=== PATIENT | male | born 2000 | race Caucasian/White ===

== ENCOUNTER 2024-11-12 14:15 | Inpatient (IN) ==
--- NOTE | 2024-11-12 15:20 | Emergency Department Note ---
Impression & Plan Suicidal ideation, Depression ED Provider Note HISTORY OF PRESENT ILLNESS: Patient is a 24-year-old male presenting with suicidal ideation. Patient reports he has a history of OCD and is previously prescribed Zoloft. He reports that he has been rationing his Zoloft over the last few weeks secondary to being unable to afford the co-pay for the medication. He reports that he was working from home today when he had sudden onset of thoughts about wanting to end his life in multiple ways to do it. He reports thinking about jumping off of a building, slitting his wrists in the tub, causing an accident with his vehicle, as well as overdosing. He reports he attempted suicide over a decade ago as a teenager via overdose. He denies any inpatient psychiatric admissions. Denies any homicidal ideation. Denies any auditory visual hallucinations. ROS: as above PHYSICAL EXAM: Constitutional: Patient appears in no acute distress. HENT: Head: Normocephalic and atraumatic. Eyes: EOMI, PERRL Mouth/Throat: Mucous membranes moist. Neck: Trachea midline. Neck supple. Musculoskeletal: No edema, tenderness or deformity noted. Skin: Warm and dry. No rash, erythema, pallor or cyanosis Psychiatric: Appropriate mood and affect for situation. Neurological: Alert and keenly responsive. CN II-XII grossly intact, moving all extremities equally and fully. MDM: - Vitals signs showed tachycardia - History obtained via patient. History as above. - Chronic conditions affecting care: depression - Differential diagnoses include, but are not limited to: depression; UTI; drug intoxication; alcohol intoxication - External medical records reviewed. - Laboratory workup interpreted by myself showed leukocytosis (WBC 14.69); stable electrolytes; elevated anion gap; normal TSH; negative salicylate/acetaminophen/alcohol levels - COVID negative - UA negative for infection - UDS positive for methamphetamine, MDMA and marijuana. - Patient medically cleared. He was seen in conjunction with behavioral health case folder. Given patient's symptoms, recommended inpatient admission, to which she was agreeable. He signed a 201 for voluntary inpatient psychiatric admission. Bed search was initiated, and patient was accepted to [facility] inpatient psychiatric unit [address]. ASSESSMENT AND PLAN: Diagnosis: suicidal ideation; depression Plan: admit Past Med/Surg History Problem List (Updated 11/12/24 @ 19:04 by Hawa Estes MD) Depression (Acute) Suicidal ideation (Acute) Social History Smoking Status: Never smoker Feels Safe at Home: Yes Gender Identity: Male Allergies Allergies Allergy/AdvReac Type Severity Reaction Status Date / Time No Known Allergies Allergy Unverified 11/12/24 15:37 Home Meds Home Medications Medication Instructions Recorded Confirmed guanfacine 1 mg tablet 1 mg PO HS 11/12/24 11/12/24 lisdexamfetamine 30 mg capsule 30 mg PO DAILY 11/12/24 11/12/24 (Vyvanse) sertraline 100 mg tablet (Zoloft) 150 mg PO DAILY 11/12/24 11/12/24 Results & Data (ED) Vital Signs Vital Signs - 24 hr 11/12/24 14:17 11/12/24 16:00 11/12/24 18:53 Temperature 36.8 C Temperature Source Oral Pulse Rate 124 H 100 H Pulse Rate [Radial] 90 Pulse Rhythm Regular Pulse Rhythm [Radial] Regular Pulse Strength Normal Respiratory Rate 20 16 18 Respiratory Effort / Characteristics Non-Labored Spontaneous Non-Labored Respiratory Depth Normal Normal Respiratory Pattern Regular Blood Pressure 128/91 118/80 Blood Pressure [Right Arm] 125/81 Blood Pressure Mean 103 Blood Pressure Mean [Right Arm] 95 Pulse Oximetry 95 96 98 Oxygen Delivery Method Room Air Room Air Room Air Sepsis Recent Fever Within 48 Hours No Sepsis New/Unexplained Change in Mental Status N/A Sepsis Action Taken by Nursing No Action Required Laboratory Data 11/12/24 14:34 11/12/24 14:34 Lab Results 11/12/24 11/12/24 Range/Units 14:22 14:34 WBC 14.69 H (4.8-10.8) K/ul RBC 5.45 (4.70-6.10) M/uL Hgb 16.0 (14.0-18.0) g/dl Hct 46.2 (42.0-52.0) % MCV 84.8 (80.0-100.0) fL MCH 29.4 (25.0-34.0) pg MCHC 34.6 (32.0-36.0) g/dL RDW Std Deviation 36.7 (36.4-46.3) fL RDW Coeff of Kira 12.2 (11.5-14.5) % Plt Count 296 (130-400) K/uL MPV 10.6 (9.4-12.4) fL Immature Gran % (Auto) 0.3 % Neut % (Auto) 85.1 % Lymph % (Auto) 8.3 % [place] % (Auto) 5.4 % Eos % (Auto) 0.5 % Baso % (Auto) 0.4 % Neut # (Auto) 12.51 H (1.40-6.50) K/uL Lymph # (Auto) 1.22 (1.20-3.40) K/uL [place] # (Auto) 0.79 H (0.11-0.59) K/uL Eos # (Auto) 0.07 (0.00-0.50) K/uL Baso # (Auto) 0.06 (0.00-0.20) K/uL Immature Gran # (Auto) 0.04 (0.01-0.20) K/uL Sodium 140 (136-145) mmol/L Potassium 3.7 (3.5-5.1) mmol/L Chloride 103 (98-107) mmol/L Carbon Dioxide 22 (21-32) mmol/L Anion Gap 15 H (3-11) BUN 29 H (6-23) mg/dl Creatinine 1.00 (0.6-1.4) mg/dl Est Cr Clr Drug Dosing 96.7 ml/min eGFR 106.45 BUN/Creatinine Ratio 29.0 H (10-20) Glucose 91 (70-99(Fasting)) mg/dl Calcium 10.3 (8.6-10.3) mg/dl Total Bilirubin 0.7 (0.2-1.0) mg/dl AST 23 (13-39) U/L ALT 22 (7-52) U/L Alkaline Phosphatase 80 (34-104) U/L Total Protein 8.6 H (6.0-8.3) gm/dl Albumin 5.7 H (3.4-5.0) gm/dl Globulin 2.9 (2.5-4.0) gm/dl Albumin/Globulin Ratio 2.0 (0.9-2) TSH 1.950 (0.300-4.500) uIu/ml Urine Color Dark Yellow Urine Appearance Clear (Clear) Urine pH 5.5 (4.5-7.5) Ur Specific [place] 1.033 H (1.000-1.030) Urine Protein Trace H (Negative) Urine Glucose (UA) Negative (Negative) Urine Ketones 2+ H (Negative) Urine Blood Negative (Negative) Urine Nitrite Negative (Negative) Urine Bilirubin Negative (Negative) Urine Urobilinogen Negative (Negative) Ur Leukocyte Esterase Negative (Negative) Urine WBC (Auto) 0-5 (0-5) /hpf Urine RBC (Auto) 0-2 (0-2) /hpf U Hyaline Cast (Auto) 3-5 H (0-2) /lpf U Epithel Cells (Auto) 0-2 (0-2) /hpf Urine Bacteria (Auto) None Seen (None Seen) Urine Mucus Present A (None Prsent) Salicylates < 3.0 L (3.0-30) mg/dl Urine Opiates Screen Neg (Neg) Ur Methadone, Qual Neg (Neg) Urine Fentanyl Screen Neg (Neg) Acetaminophen < 3 L (10-30) ug/ml Urine Barbiturates Neg (Neg) Ur Phencyclidine (PCP) Neg (Neg) U Amphetamin/Meth Scrn Pos H (Neg) MDMA (Ecstasy) Screen Pos H (Neg) U Benzodiazepines Scrn Neg (Neg) Ur Cocaine Metabolite Neg (Neg) U Marijuana (THC) Screen Pos H (Neg) Ethyl Alcohol mg/dL < 10.0 (<10.0) mg/dl SARS-CoV-2, RNA, NAAT NEGATIVE (NEGATIVE) Discharge Plan Visit Data Chief Complaint: Mental Health Evaluation Stated Complaint: HAVING A MENTAL CRISIS ED Provider: Hawa Estes Discharge Problem: Suicidal ideation, Depression Discharge Instructions Interventions: ED Discharge Assessment Last Done: 11/12/24 18:53
[2024-11-12 15:29] LABS: Basophils # (auto) 0.06 K/uL (0.00-0.20); Basophils % (auto) 0.4 %; Eosinophils # (auto) 0.07 K/uL (0.00-0.50); Eosinophils % (auto) 0.5 %; Hematocrit (blood only) 46.2 % (42.0-52.0); Immature Granulocytes # (auto) 0.04 K/uL (0.01-0.20); Immature Granulocytes % (auto) 0.3 %; Lymphocytes # (auto) 1.22 K/uL (1.20-3.40); Lymphocytes % (auto) 8.3 %; Mean Corpuscular Hemoglobin 29.4 pg (25.0-34.0); Mean Corpuscular Hgb Conc 34.6 g/dL (32.0-36.0); Mean Corpuscular Volume 84.8 fL (80.0-100.0); Mean Platelet Volume 10.6 fL (9.4-12.4); Monocytes # (auto) 0.79 K/uL (0.11-0.59); Monocytes % (auto) 5.4 %; Neutrophils # (auto) 12.51 K/uL (1.40-6.50); Neutrophils % (auto) 85.1 %; Platelet Count 296 K/uL (130-400); RDW Coefficient of Variation 12.2 % (11.5-14.5); RDW Standard Deviation 36.7 fL (36.4-46.3); Red Blood Count 5.45 M/uL (4.70-6.10); White Blood Count 14.69 K/ul (4.8-10.8)
[2024-11-12 15:32] LABS: Appearance Urine Clear (Clear); Bacteria Urine Automated None Seen (None Seen); Bilirubin Urine Negative (Negative); Blood Urine Negative (Negative); Color Urine Dark Yellow; Epithelial Cell Urine Auto 0-2 /hpf (0-2); Glucose Urine UA Negative (Negative); Ketones Urine 2+ (Negative); Leukocyte Esterase Urine Negative (Negative); Mucus Urine Present (None Prsent); Nitrite Urine Negative (Negative); Protein Urine Trace (Negative); RBC Urine Automated 0-2 /hpf (0-2); Specific Gravity Urine 1.033 (1.000-1.030); Urobilinogen Urine Negative (Negative); WBC Urine Automated 0-5 /hpf (0-5); pH Urine 5.5 (4.5-7.5)
[2024-11-12 16:02] LABS: Amphetamines+Metham, Urine Pos (Neg); Barbiturates, Urine Neg (Neg); Benzodiazepine, Urine Neg (Neg); Cocaine, Urine Neg (Neg); Fentanyl, Urine Neg (Neg); MDMA (Ecstacy), Urine Pos (Neg); Marijuana, Urine Pos (Neg); Methadone, Urine Neg (Neg); Opiate, Urine Neg (Neg); Phencyclidine, Urine Neg (Neg)
[2024-11-12 16:07] LABS: Acetaminophen < 3 ug/ml (10-30); Salicylate < 3.0 mg/dl (3.0-30)
[2024-11-12 16:09] LABS: Albumin Level 5.7 gm/dl (3.4-5.0); Bilirubin,Total 0.7 mg/dl (0.2-1.0); Calcium 10.3 mg/dl (8.6-10.3); Creatinine Clr Calc Pharmacy 96.7 ml/min; Globulin 2.9 gm/dl (2.5-4.0); Potassium 3.7 mmol/L (3.5-5.1); Total Protein 8.6 gm/dl (6.0-8.3)
[2024-11-12 16:24] LABS: Thyroid Stimulating Hormone 1.95 uIu/ml (0.300-4.500)
[2024-11-12] MEDS ORDERED: SODIUM CHLORIDE 0.65% NA SOLN 45 ML (OCEAN) PRN (19:10)
[2024-11-12] MEDS ORDERED: BISMUTH SUBSALICYLATE 262 MG CHEW PO PRN (19:10)
[2024-11-12] MEDS ORDERED: MAGNESIUM HYDROXIDE SUSP 30 ML UDC PO PRN (19:10)
[2024-11-12] MEDS ORDERED: hydrOXYzine HCl 25 MG TAB PO PRN ×2 (19:10)
[2024-11-12] MEDS ORDERED: ALUMINUM/MAGNESIUM SUSP 30 ML UDC PO PRN (19:10)
[2024-11-12] MEDS ORDERED: ACETAMINOPHEN 325 MG TAB PO PRN (19:10)
[2024-11-12] MEDS: guanFACINE HCL 1 MG TAB PO SCH (21:29)
--- NOTE | 2024-11-13 10:07 | History & Physical ---
Date of Service November 13, 2024 Impression / Recommendations Impression JOEY CAMERON is a 24-year-old man who currently lives in [place] with his boyfriend, has a history of ADHD combined type, OCD, and possible bipolar disorder was admitted on 11/12/24 18:28 on a 201 voluntary commitment for depression with SI with plans in the context of having to taper his sertraline due to financial constraints. Diagnostically consistent with unspecified depression with differential in cluding MDD vs bipolar affective disorder vs SSRI withdrawal vs worsening OCD as well as MG with panic attacks and ADHD per history and possible component of complex PTSD/early life adversity. Discussed medication treatment options in detail. Discussed risks, benefits and alternatives. Patient would like to start and consented to restarting and retitrating sertraline for depression, OCD, MG. Reviewed side effects including but not limited to: GI, ANNE, sexual side effects and continuing guanfacine for ADHD and off-label for anxiety/PTSD/restless leg syndrome reviewed side effects including but not limited to: low BP. Overall I spent a total of 75 minutes for this admission including review of chart records, review of labwork, direct evaluation of the patient, counseling the patient, ordering medication, risk assessment, discussion with the psychiatric liason RN and documentation in the electronic health record. (1) Depression with suicidal ideation: (2) Obsessive compulsive disorder: (3) Generalized anxiety disorder with panic attacks: (4) ADHD (attention deficit hyperactivity disorder), combined type: Plan 11/13/2024: The patient was admitted to the [facility]) on q15 min checks (behavioral with suicide precautions) for safety. The patient will participate in group, recreational, and milieu therapies and will be offered additional individual and family sessions as clinically appropriate. -increase to sertraline 100mg daily -continue guanfacine 1mg HS -hold Vyvanse since he won't be working and isn't available on hospital formulary -outpatient CM referral, consideration for IOP referral for increased coping skills for emotional regulation/depression/anxiety/OCD -Symptom questionnaires: Y-BOCS, REG, Mood Disorder questionnaire Inventory Assets Strengths: supportive relationships, willing to get treatment Needs: safety and stabilization, medication adjustment, additional coping skills, increased outpatient services Suicide Risk Level Suicide Risk Level: High-Moderate (q15 min suicide checks) (SI with plan prior to admission but feels safe here and feels able to ask for support ) Risk Factors Assessment Male: Yes : Yes Do You Have Access To A Gun?: No Health Problems: No Mental Health Diagnoses: Yes Substance Use Disorders: No Previous Attempt: Yes Family History of Suicide: No Previous Psychiatric Hospitalization: No Hopelessness: No Protective Factors Assessment Employed: Yes Stable Relationships: Yes Good Rapport with Provider: Yes Psychiatric History Identifying Data JOEY CAMERON is a 24-year-old man who currently lives in [place] with his boyfriend, has a history of ADHD combined type, OCD, and possible bipolar disorder was admitted on 11/12/24 18:28 on a 201 voluntary commitment for depression with SI with plans. Chief Complaint "It got really intense". History of Present Illness He presents for psychiatric admission for worsening depression and SI with possible plans of jumping [] in the context of multiple psychosocial stressors including family, financial and work challenges. Starting about two weeks ago he had to start stretching out his sertraline dose due to financial issues limiting his ability to afford the co-pay for a psychiatry appointment to get a prescription refill. He reduced his dose from 150mg daily to 50mg daily over the last two weeks to stretch his prescription until he can afford to be seen by his outpatient provider again. He identifies a lot of OCD symptoms including intrusive violent thoughts about harming himself or others he cares about. He abhijeet by self-reassurance and distraction, though he sometimes struggles to distance himself from these thoughts. 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 He feels overwhelmed, burnt out, and unable to find enjoyment in activities. He endorses depressive symptoms including anhedonia, tearfulness, decreased motivation, low appetite (though in part from lack of finances and he thinks due to Vyvanse and has lost weight), sleep has been intermittent and then SI started on . Initially he could get the thoughts out of his mind but yesterday the SI intensified significantly especially after being scolded by his manager building with overwhelming emotion and he started to feel like he was worthless and letting the company down. His suicidal thoughts then got to the point of plans including hanging, using a gun, jumping off a building, slitting wrists, overdosing on pills, or throwing himself down stairs. He recognized the intensity of his suicidal thoughts as concerning and therefore sought admission. He identifies these thoughts feel almost like "dissociation and a flashback" due to the intensity of the imagery. He also endorses anxiety with a history of severe panic attacks, including episodes where he believed he was dying from gunshot wounds or heart failure. He is currently prescribed psychiatric medications including sertraline, Vyvanse and guanfacine (helps also with restless legs). Psychiatric ROS notable for history of some episodes of increased energy and no sleep over about 3 days which occurred about a month ago. Reports history of possible psychosis after using cannabis and watching the [employer] Show and for about 5 days was convinced he might be in a stimulated reality and sometimes still worries that people might be watching or following him. He identifies that he can get very focused on somatic concerns including fears his pulse may have stopped. No history of eating disorder nor self-harm. Past Psychiatric History Current Psychiatric Diagnosis: Unspecified depressive d/o Outpatient Services: Dr. Cheung at [facility] current therapist Kourtney at [facility] Previous Psych Admissions: none Do You Have Access To A Gun?: No History of Previous Suicide Attempt: Yes (10 years ago - OD on ibuprofen) Past Medication Trials: hx of Adderall for about 2 months but blunted emotions Allergies Allergy/AdvReac Type Severity Reaction Status Date / Time No Known Allergies Allergy Unverified 11/12/24 15:37 Home Medications Medication Instructions Recorded Confirmed Type guanfacine 1 mg tablet 1 mg PO HS 11/12/24 11/12/24 History lisdexamfetamine 30 mg capsule 30 mg PO DAILY 11/12/24 11/12/24 History (Vyvanse) sertraline 100 mg tablet (Zoloft) 150 mg PO DAILY 11/12/24 11/12/24 History Family History Family History of: Depression (mother), Alcoholism/Drug Abuse (father, mother with opioid use) and Other-List under Comment (father with psychosis and paranoia) Alcohol History Hx of Alcohol Use Over the Past 12 Months: No AUDIT Total Score: 0 Smoking Use Have You Smoked or Used Tobacco Products in the Last 30 Days: No Smoking Status: Never smoker Substance History Hx of Prescription Med Misuse Over the Past 12 Months: No Hx of Over the Counter Med Misuse Over the Past 12 Months: No Hx of Inhalent Misuse Over the Past 12 Months: No Hx of Organic Substance Use Over the Past 12 Months: No Hx of Illegal Substances/Street Drug Use Over Past 12 Months: No Problems as a Result of Past Substance Use: None Identified Problems as a Result of Past Substance Use Comments: [place] [employer] Personal History Living Arrangements: Apartment Employment Status: [employer]er Employed Marital Status: Living w/ Signif. Other Beliefs That Will Affect Care: None Hx Traumatic Life Events: Yes Patient History Social History Smoking Status: Never smoker Preferred Language: Liberian Communication Ability: Effective Product Management Consultant Required: No Beliefs That Will Affect Care: None Feels Safe at Home: Yes Gender Identity: Male Assistive Devices: Glasses Review of Systems Review of Systems: All systems reviewed & are unremarkable except as noted in HPI & below Physical Exam Psychiatric: Orientation: alert and oriented x 3 Apperance: appropriately dressed and appropriately groomed Eye Contact: good eye contact Motor Behavior: no abnormal motor movements Speech: normal rate/rhythm/volume of speech Affect: + depressed affect and + anxious affect Mood: + depressed mood and + anxious mood Thought Process: + circumstantial thought process Thought Content: reality based without delusions Suicidal Thoughts: denies suicidal intent; + reports suicidal thoughts and + reports suicidal plan (none for hospital but multiple for outside the hospital) Homicidal Thoughts: denies homicidal thoughts Hallucinations: no auditory hallucinations and no visual hallucinations Cognition: recent memory grossly intact, remote memory grossly intact, attention grossly intact and language grossly intact Estimated Intelligence: consistent with education level Insight: + fair insight Judgment: + fair judgement Vital Signs (Past 24 Hours): Last Vital Signs Temp 36.6 C 11/13/24 06:28 Pulse 92 H 11/13/24 06:28 Resp 18 11/13/24 06:28 BP 125/84 11/13/24 06:30 Pulse Ox 99 11/13/24 06:28 O2 Del Method Room Air 11/13/24 06:28 Exam Statement: A physical exam was performed in the ED by Franklyn for the purposes of medical clearance. I accept that physical as correct and adequate for the purposes of the inpatient physical exam. Results & Data ([facility]) Laboratory Results Laboratory Results - last 24 hr 11/12/24 11/12/24 14:22 14:34 WBC 14.69 H RBC 5.45 Hgb 16.0 Hct 46.2 MCV 84.8 MCH 29.4 MCHC 34.6 RDW Std Deviation 36.7 RDW Coeff of Kira 12.2 Plt Count 296 MPV 10.6 Immature Gran % (Auto) 0.3 Neut % (Auto) 85.1 Lymph % (Auto) 8.3 [place] % (Auto) 5.4 Eos % (Auto) 0.5 Baso % (Auto) 0.4 Neut # (Auto) 12.51 H Lymph # (Auto) 1.22 [place] # (Auto) 0.79 H Eos # (Auto) 0.07 Baso # (Auto) 0.06 Immature Gran # (Auto) 0.04 Sodium 140 Potassium 3.7 Chloride 103 Carbon Dioxide 22 Anion Gap 15 H BUN 29 H Creatinine 1.00 Est Cr Clr Drug Dosing 96.7 eGFR 106.45 BUN/Creatinine Ratio 29.0 H Glucose 91 Calcium 10.3 Total Bilirubin 0.7 AST 23 ALT 22 Alkaline Phosphatase 80 Total Protein 8.6 H Albumin 5.7 H Globulin 2.9 Albumin/Globulin Ratio 2.0 TSH 1.950 Urine Color Dark Yellow Urine Appearance Clear Urine pH 5.5 Ur Specific [place] 1.033 H Urine Protein Trace H Urine Glucose (UA) Negative Urine Ketones 2+ H Urine Blood Negative Urine Nitrite Negative Urine Bilirubin Negative Urine Urobilinogen Negative Ur Leukocyte Esterase Negative Urine WBC (Auto) 0-5 Urine RBC (Auto) 0-2 U Hyaline Cast (Auto) 3-5 H U Epithel Cells (Auto) 0-2 Urine Bacteria (Auto) None Seen Urine Mucus Present A Salicylates < 3.0 L Urine Opiates Screen Neg Ur Methadone, Qual Neg Urine Fentanyl Screen Neg Acetaminophen < 3 L Urine Barbiturates Neg Ur Phencyclidine (PCP) Neg U Amphetamines Confirm Pending U Amphetamin/Meth Scrn Pos H U Methamphetamin Confrm Pending Urine MDEA Pending MDMA (Ecstasy) Screen Pos H MDMA Pending Urine MDMA Pending U Benzodiazepines Scrn Neg Ur Cocaine Metabolite Neg U Marijuana (THC) Screen Pos H U Marijuana THC Carboxy Pending Drug Screen Comment Pending Ethyl Alcohol mg/dL < 10.0 SARS-CoV-2, RNA, NAAT NEGATIVE Current Inpatient Medications Current Inpatient Medications: Current Inpatient Medications Acetaminophen (Acetaminophen 325 Mg Tab) 650 mg PO Q4H PRN PRN Reason: Headache or Minor Fever Stop: 12/12/24 19:09 Al Hydrox/Mg Hydrox/Simethicone (Aluminum/Magnesium Susp 30 Ml Udc) 30 ml PO Q4H PRN PRN Reason: GI Upset Stop: 12/12/24 19:09 Bismuth Subsalicylate (Bismuth Subsalicylate 262 Mg Chew) 2 tab PO Q30M PRN PRN Reason: Loose Stool/Diarrhea Stop: 12/12/24 19:09 Guanfacine HCl (Guanfacine Hcl 1 Mg Tab) 1 mg PO HS HAYES Stop: 12/12/24 21:59 Last Admin: 11/12/24 21:29 Dose: 1 mg Hydroxyzine HCl (Hydroxyzine Hcl 25 Mg Tab) 50 mg PO HSZ PRN PRN Reason: Insomnia Stop: 12/12/24 19:09 Hydroxyzine HCl (Hydroxyzine Hcl 25 Mg Tab) 25 mg PO Q4H PRN PRN Reason: Anxiety Stop: 12/12/24 19:09 Magnesium Hydroxide (Magnesium Hydroxide Susp 30 Ml Udc) 30 ml PO DAILY PRN PRN Reason: Constipation Stop: 12/12/24 19:09 Sodium Chloride (Sodium Chloride 0.65% Na Soln 45 Ml ([facility])) 1 - 2 sprays NA PRN PRN PRN Reason: Nasal Dryness/Congestion Stop: 12/12/24 19:09
[2024-11-13] MEDS: SERTRALINE HCL 100 MG TABLET PO SCH (11:29)
[2024-11-13] MEDS: INFLUENZA VACC TS2024-25(6m+)/PF (IIV3) 0.5mL Syr IM ONE (13:35)
[2024-11-13] MEDS: guanFACINE HCL 1 MG TAB PO SCH (22:03)
--- NOTE | 2024-11-14 09:46 | Psychiatric Progress Note ---
Date of Service November 14, 2024 Impression / Recommendations Impression JOEY CAMERON is a 24-year-old man who currently lives in [place] with his boyfriend, has a history of ADHD combined type, OCD, and possible bipolar disorder was admitted on 11/12/24 18:28 on a 201 voluntary commitment for depression with SI with plans in the context of having to taper his sertraline due to financial constraints. Diagnostically consistent with unspecified depression with differential in cluding MDD vs bipolar affective disorder vs SSRI withdrawal vs worsening OCD as well as MG with panic attacks and ADHD per history and possible component of complex PTSD/early life adversity. A: Ongoing depression but mood improving. Tolerating titration of sertraline, he'd like to continue with titration. Difficulty sleeping due to nightmares which is chronic. Reviewed that guanfacine has not helped much with this. Discussed option to try clonidine for ADHD and as off-label use for night terrors/anxiety, reviewed side effects including but not limited to low BP/syncope and he consents to trying this. Reviewed symptom questionnaires: Y- BOCS consistent with OCD and likely BPAD type II as he identifies many symptoms on MDQ and describes periods of multiple days with poor sleep and risk taking, increased spending, increased energy levels, making more jokes at work that he wouldn't typically. Sounds distinct from just normal/positive mood after depressive episode. Reviewed that typically would start a mood stabilization and that given OCD could also consider use of SGA antipsychotic. Reviewed lamictal and abilify as potential options including side effects. He was provided with additional literature which he is going to review before making a decision. Discussed potential financial impacts as well given that abilify would require routine blood monitoring of lipid panel and HbA1c initially, ~12 weeks and then annually. Overall, I spent a total of 36 minutes on this case including meeting with the patient, reviewing the chart, nursing report, multidisciplinary team meeting, orders, and documentation. (1) Depression with suicidal ideation: (2) Obsessive compulsive disorder: (3) Generalized anxiety disorder with panic attacks: (4) ADHD (attention deficit hyperactivity disorder), combined type: Plan 11/14/2024: -Increase sertraline to 150mg daily -Discontinue guanfacine -Start clonidine 0.1mg HS 11/13/2024: The patient was admitted to the [facility] ([facility]) on q15 min checks (behavioral with suicide precautions) for safety. The patient will participate in group, recreational, and milieu therapies and will be offered additional individual and family sessions as clinically appropriate. -increase to sertraline 100mg daily -continue guanfacine 1mg HS -hold Naina since he won't be working and isn't available on hospital formulary -outpatient CM referral, consideration for IOP referral for increased coping skills for emotional regulation/depression/anxiety/OCD -Symptom questionnaires: Y-BOCS, REG, Mood Disorder questionnaire Inventory Assets Strengths: supportive relationships, willing to get treatment Needs: safety and stabilization, medication adjustment, additional coping skills, increased outpatient services Suicide Risk Level Suicide Risk Level: Moderate (q15 min suicide checks) (SI with plan prior to admission but Si lessening, feels safe here and feels able to ask for support ) Suicide Risk Level Comments: Risk Factors Assessment Male: Yes : Yes Do You Have Access To A Gun?: No Health Problems: No Mental Health Diagnoses: Yes Substance Use Disorders: No Previous Attempt: Yes Family History of Suicide: No Previous Psychiatric Hospitalization: No Hopelessness: No Protective Factors Assessment Employed: Yes Stable Relationships: Yes Good Rapport with Provider: Yes Interval History Identifying Information JOEY CAMERON is a 24-year-old man who currently lives in [place] with his boyfriend, has a history of ADHD combined type, OCD, and possible bipolar disorder was admitted on 11/12/24 18:28 on a 201 voluntary commitment for depression with SI with plans. Chief Complaint "Pretty good". Review of Systems Sleep Information Total Hours of Sleep: 8.5 Meal Information Percent Meal Consumed - Breakfast: 90 Percent Meal Consumed - Lunch: 100 Percent Meal Consumed - Dinner: 100 Subjective Subjective Patient was seen & assessed and interval progress reviewed with nursing. Out of his room and engaging in groups. Had a bad dream last night that caused multiple awakenings and impacted his mood negatively this morning. He notes it was "very graphic and violent" so he had "ruminations" this morning until his zoloft "kicked in". He denies any side effects from the higher dose of sertraline. Reviewed symptom questionnaires, responses and further discussion consistent with OCD and likely BPAD type II. Physical Exam Psychiatric Orientation: alert and oriented x 3 Apperance: appropriately dressed and appropriately groomed Eye Contact: good eye contact Motor Behavior: no abnormal motor movements Speech: normal rate/rhythm/volume of speech Affect: + depressed affect and + anxious affect Mood: + depressed mood and + anxious mood Thought Process: + circumstantial thought process Thought Content: reality based without delusions Suicidal Thoughts: denies suicidal thoughts (lessening), denies suicidal plan and denies suicidal intent Homicidal Thoughts: denies homicidal thoughts Hallucinations: no auditory hallucinations and no visual hallucinations Cognition: recent memory grossly intact, remote memory grossly intact, attention grossly intact and language grossly intact Estimated Intelligence: consistent with education level Insight: + fair insight Judgment: + fair judgement Vital Signs (Past 24 Hours) Last Vital Signs Temp 36.6 C 11/14/24 06:00 Pulse 81 11/14/24 06:31 Resp 17 11/14/24 06:00 BP 111/77 11/14/24 06:31 Pulse Ox 99 11/14/24 06:00 O2 Del Method Room Air 11/14/24 06:00 Results & Data ([facility]) Current Inpatient Medications Current Inpatient Medications: Current Inpatient Medications Acetaminophen (Acetaminophen 325 Mg Tab) 650 mg PO Q4H PRN PRN Reason: Headache or Minor Fever Stop: 12/12/24 19:09 Al Hydrox/Mg Hydrox/Simethicone (Aluminum/Magnesium Susp 30 Ml Udc) 30 ml PO Q4H PRN PRN Reason: GI Upset Stop: 12/12/24 19:09 Bismuth Subsalicylate (Bismuth Subsalicylate 262 Mg Chew) 2 tab PO Q30M PRN PRN Reason: Loose Stool/Diarrhea Stop: 12/12/24 19:09 Guanfacine HCl (Guanfacine Hcl 1 Mg Tab) 1 mg PO HS HAYES Stop: 12/13/24 21:59 Last Admin: 11/13/24 22:03 Dose: 1 mg Hydroxyzine HCl (Hydroxyzine Hcl 25 Mg Tab) 50 mg PO HSZ PRN PRN Reason: Insomnia Stop: 12/12/24 19:09 Hydroxyzine HCl (Hydroxyzine Hcl 25 Mg Tab) 25 mg PO Q4H PRN PRN Reason: Anxiety Stop: 12/12/24 19:09 Magnesium Hydroxide (Magnesium Hydroxide Susp 30 Ml Udc) 30 ml PO DAILY PRN PRN Reason: Constipation Stop: 12/12/24 19:09 Sertraline HCl (Sertraline Hcl 100 Mg Tablet) 100 mg PO DAILY [facility] Stop: 12/13/24 11:14 Last Admin: 11/14/24 08:49 Dose: 100 mg Sodium Chloride (Sodium Chloride 0.65% Na Soln 45 Ml ([place])) 1 - 2 sprays NA PRN PRN PRN Reason: Nasal Dryness/Congestion Stop: 12/12/24 19:09 Mental Health & Subst Abuse Tx Psychiatrist Date Of Appointment With Psychiatric Provider: 11/22/24 Therapist Name of Therapist: Alie Day Laundry Washer Name of Laundry Washer: None
[2024-11-14] MEDS: cloNIDine HCL 0.1 MG TAB PO SCH (20:48)
[2024-11-15] MEDS: SERTRALINE HCL 50 MG TABLET PO SCH (09:03)
--- NOTE | 2024-11-15 09:21 | Psychiatric Progress Note ---
Date of Service November 15, 2024 Impression / Recommendations Impression JOEY CAMERON is a 24-year-old man who currently lives in [place] with his boyfriend, has a history of ADHD combined type, OCD, and possible bipolar disorder was admitted on 11/12/24 18:28 on a 201 voluntary commitment for depression with SI with plans in the context of having to taper his sertraline due to financial constraints. Diagnostically consistent with unspecified depression with differential in cluding MDD vs bipolar affective disorder vs SSRI withdrawal vs worsening OCD as well as MG with panic attacks and ADHD per history and possible component of complex PTSD/early life adversity. A: Mood gradually improving, slept much better with clonidine addition. He would like to start lamictal for mood stabilization. Reviewed side effects including but not limited to potential for Lucien's Sony syndrome/fatal rash and need to seek immediate medical attention should rash occur, also reviewed need to speak with provider before restarting lamictal if he ever misses more than 4 doses due to potential need to retitrate which he states understanding of. Overall, I spent a total of 25 minutes on this case including meeting with the patient, reviewing the chart, nursing report, multidisciplinary team meeting, orders, and documentation. (1) Depression with suicidal ideation: (2) Obsessive compulsive disorder: (3) Generalized anxiety disorder with panic attacks: (4) ADHD (attention deficit hyperactivity disorder), combined type: Plan 11/15/2024: -Start lamictal 25mg HS 11/14/2024: -Increase sertraline to 150mg daily -Discontinue guanfacine -Start clonidine 0.1mg HS 11/13/2024: The patient was admitted to the [facility] ([facility] health unit) on q15 min checks (behavioral with suicide precautions) for safety. The patient will participate in group, recreational, and milieu therapies and will be offered additional individual and family sessions as clinically appropriate. -increase to sertraline 100mg daily -continue guanfacine 1mg HS -hold Vyvanse since he won't be working and isn't available on hospital formulary -outpatient CM referral, consideration for IOP referral for increased coping skills for emotional regulation/depression/anxiety/OCD -Symptom questionnaires: Y-BOCS, REG, Mood Disorder questionnaire Inventory Assets Strengths: supportive relationships, willing to get treatment Needs: safety and stabilization, medication adjustment, additional coping skills, i ncreased outpatient services Suicide Risk Level Suicide Risk Level: Moderate (q15 min suicide checks) (SI with plan prior to admission but Si lessening, feels safe here and feels able to ask for support ) Suicide Risk Level Comments: Risk Factors Assessment Male: Yes : Yes Do You Have Access To A Gun?: No Health Problems: No Mental Health Diagnoses: Yes Substance Use Disorders: No Previous Attempt: Yes Family History of Suicide: No Previous Psychiatric Hospitalization: No Hopelessness: No Protective Factors Assessment Employed: Yes Stable Relationships: Yes Good Rapport with Provider: Yes Interval History Identifying Information JOEY CAMERON is a 24-year-old man who currently lives in [place] with his boyfriend, has a history of ADHD combined type, OCD, and possible bipolar disorder was admitted on 11/12/24 18:28 on a 201 voluntary commitment for depression with SI with plans. Chief Complaint "I'm doing well". Review of Systems Sleep Information Total Hours of Sleep: 8.5 Meal Information Percent Meal Consumed - Breakfast: 100 Percent Meal Consumed - Lunch: 100 Percent Meal Consumed - Dinner: 100 Subjective Subjective Patient was seen & assessed and interval progress reviewed with treatment team. Attended groups. Reported mood as "tired and satisfied" last evening. Today reports sleeping well last night with clonidine without any nightmares which has not happened in "a long time", also found clonidine very beneficial for his restless legs. No side effects from higher dose of sertraline this morning. He reviewed literature on options for mood stabilizers and would like to start lamictal tonight. Physical Exam Psychiatric Orientation: alert and oriented x 3 Apperance: appropriately dressed and appropriately groomed Eye Contact: good eye contact Motor Behavior: no abnormal motor movements Speech: normal rate/rhythm/volume of speech Affect: + depressed affect and + anxious affect Mood: + depressed mood and + anxious mood Thought Process: goal directed thought process Thought Content: reality based without delusions Suicidal Thoughts: denies suicidal thoughts (lessening), denies suicidal plan and denies suicidal intent Homicidal Thoughts: denies homicidal thoughts Hallucinations: no auditory hallucinations and no visual hallucinations Cognition: recent memory grossly intact, remote memory grossly intact, attention grossly intact and language grossly intact Estimated Intelligence: consistent with education level Insight: + fair insight Judgment: + fair judgement Vital Signs (Past 24 Hours) Last Vital Signs Temp 36.4 C 11/15/24 06:16 Pulse 72 11/15/24 06:18 Resp 16 11/15/24 06:16 BP 123/78 11/15/24 06:18 Pulse Ox 99 11/15/24 06:16 O2 Del Method Room Air 11/15/24 06:16 Results & Data ([facility]) Current Inpatient Medications Current Inpatient Medications: Current Inpatient Medications Acetaminophen (Acetaminophen 325 Mg Tab) 650 mg PO Q4H PRN PRN Reason: Headache or Minor Fever Stop: 12/12/24 19:09 Al Hydrox/Mg Hydrox/Simethicone (Aluminum/Magnesium Susp 30 Ml Udc) 30 ml PO Q4H PRN PRN Reason: GI Upset Stop: 12/12/24 19:09 Bismuth Subsalicylate (Bismuth Subsalicylate 262 Mg Chew) 2 tab PO Q30M PRN PRN Reason: Loose Stool/Diarrhea Stop: 12/12/24 19:09 Clonidine HCl (Clonidine Hcl 0.1 Mg Tab) 0.1 mg PO HS HAYES Stop: 12/14/24 21:59 Last Admin: 11/14/24 20:48 Dose: 0.1 mg Hydroxyzine HCl (Hydroxyzine Hcl 25 Mg Tab) 50 mg PO HSZ PRN PRN Reason: Insomnia Stop: 12/12/24 19:09 Hydroxyzine HCl (Hydroxyzine Hcl 25 Mg Tab) 25 mg PO Q4H PRN PRN Reason: Anxiety Stop: 12/12/24 19:09 Magnesium Hydroxide (Magnesium Hydroxide Susp 30 Ml Udc) 30 ml PO DAILY PRN PRN Reason: Constipation Stop: 12/12/24 19:09 Sertraline HCl (Sertraline Hcl 50 Mg Tablet) 150 mg PO DAILY HAYES Stop: 12/15/24 08:59 Last Admin: 11/15/24 09:03 Dose: 150 mg Sodium Chloride (Sodium Chloride 0.65% Na Soln 45 Ml ([place])) 1 - 2 sprays NA PRN PRN PRN Reason: Nasal Dryness/Congestion Stop: 12/12/24 19:09 Mental Health & Subst Abuse Tx Psychiatrist Date Of Appointment With Psychiatric Provider: 11/22/24 Therapist Name of Therapist: Alie Day Pig Sticker Name of Pig Sticker: None
[2024-11-15] MEDS: lamoTRIgine 25 MG TAB PO SCH (21:32)
--- NOTE | 2024-11-16 09:12 | Psychiatric Progress Note ---
Date of Service November 16, 2024 Impression / Recommendations Impression JOEY CAMERON is a 24-year-old man who currently lives in [place] with his boyfriend, has a history of ADHD combined type, OCD, and possible bipolar disorder was admitted on 11/12/24 18:28 on a 201 voluntary commitment for depression with SI with plans in the context of having to taper his sertraline due to financial constraints. Diagnostically consistent with unspecified depression with differential in cluding MDD vs bipolar affective disorder vs SSRI withdrawal vs worsening OCD as well as MG with panic attacks and ADHD per history and possible component of complex PTSD/early life adversity. A: Mood improving, still with significant OCD symptoms but using more coping skills and finding this effective. No side effects from higher dose of sertraline, he would like to continue titration to 200mg daily. Tolerating lamictal so far, no rash. Reviewed some online OCD CBT resources. Overall, I spent a total of 25 minutes on this case including meeting with the patient, reviewing the chart, nursing report, multidisciplinary team meeting, orders, and documentation. (1) Depression with suicidal ideation: (2) Obsessive compulsive disorder: (3) Generalized anxiety disorder with panic attacks: (4) ADHD (attention deficit hyperactivity disorder), combined type: Plan 11/16/2024: -Increase sertraline to 200mg daily 11/15/2024: -Start lamictal 25mg HS 11/14/2024: -Increase sertraline to 150mg daily -Discontinue guanfacine -Start clonidine 0.1mg HS 11/13/2024: The patient was admitted to the [facility] ([facility] mental health unit) on q15 min checks (behavioral with suicide precautions) for safety. The patient will participate in group, recreational, and milieu therapies and will be offered additional individual and family sessions as clinically appropriate. -increase to sertraline 100mg daily -continue guanfacine 1mg HS -hold Vyvanse since he won't be working and isn't available on hospital formulary -outpatient CM referral, consideration for IOP referral for increased coping skills for emotional regulation/depression/anxiety/OCD -Symptom questionnaires: Y-BOCS, REG, Mood Disorder questionnaire Inventory Assets Strengths: supportive relationships, willing to get treatment Needs: safety and stabilization, medication adjustment, additional coping skills, increased outpatient services Suicide Risk Level Suicide Risk Level: Moderate (q15 min suicide checks) (SI with plan prior to admission but Si lessening, feels safe here and feels able to ask for support ) Suicide Risk Level Comments: Risk Factors Assessment Male: Yes : Yes Do You Have Access To A Gun?: No Health Problems: No Mental Health Diagnoses: Yes Substance Use Disorders: No Previous Attempt: Yes Family History of Suicide: No Previous Psychiatric Hospitalization: No Hopelessness: No Protective Factors Assessment Employed: Yes Stable Relationships: Yes Good Rapport with Provider: Yes Interval History Identifying Information JOEY CAMERON is a 24-year-old man who currently lives in [place] with his boyfriend, has a history of ADHD combined type, OCD, and possible bipolar disorder was admitted on 11/12/24 18:28 on a 201 voluntary commitment for depression with SI with plans. Chief Complaint "I'm doing great now, this morning was tough". Review of Systems Sleep Information Total Hours of Sleep: 6.5 Meal Information Percent Meal Consumed - Breakfast: 100 Percent Meal Consumed - Lunch: 100 Percent Meal Consumed - Dinner: 100 Subjective Subjective Patient was seen & assessed and interval progress reviewed with nursing and social work. Attending groups, engaging with peers. Reports he felt "pretty crummy this morning" due to intrusive OCD thoughts that make him feel like a bad person. However, he was able to reframe these thoughts and reminded himself that "they are just thoughts, it would only be bad if I acted on them" which helped him feel better and helped build his confidence that he can cope with the thoughts. He spoke with [facility] for IOP. Tolerating initial dose of lamictal without any side effects. Physical Exam Psychiatric Orientation: alert and oriented x 3 Apperance: appropriately dressed and appropriately groomed Eye Contact: good eye contact Motor Behavior: no abnormal motor movements Speech: normal rate/rhythm/volume of speech Affect: + anxious affect Mood: + anxious mood Thought Process: goal directed thought process Thought Content: reality based without delusions Suicidal Thoughts: denies suicidal thoughts, denies suicidal plan and denies suicidal intent Homicidal Thoughts: denies homicidal thoughts Hallucinations: no auditory hallucinations and no visual hallucinations Cognition: recent memory grossly intact, remote memory grossly intact, attention grossly intact and language grossly intact Estimated Intelligence: consistent with education level Insight: + fair insight Judgment: + fair judgement Vital Signs (Past 24 Hours) Last Vital Signs Temp 36.5 C 11/16/24 06:59 Pulse 80 11/16/24 07:00 Resp 16 11/16/24 06:59 BP 102/71 11/16/24 07:00 Pulse Ox 99 11/15/24 06:16 O2 Del Method Room Air 11/15/24 06:16 Results & Data ([facility]) Current Inpatient Medications Current Inpatient Medications: Current Inpatient Medications Acetaminophen (Acetaminophen 325 Mg Tab) 650 mg PO Q4H PRN PRN Reason: Headache or Minor Fever Stop: 12/12/24 19:09 Al Hydrox/Mg Hydrox/Simethicone (Aluminum/Magnesium Susp 30 Ml Udc) 30 ml PO Q4H PRN PRN Reason: GI Upset Stop: 12/12/24 19:09 Bismuth Subsalicylate (Bismuth Subsalicylate 262 Mg Chew) 2 tab PO Q30M PRN PRN Reason: Loose Stool/Diarrhea Stop: 12/12/24 19:09 Clonidine HCl (Clonidine Hcl 0.1 Mg Tab) 0.1 mg PO HS HAYES Stop: 12/14/24 21:59 Last Admin: 11/15/24 21:33 Dose: 0.1 mg Hydroxyzine HCl (Hydroxyzine Hcl 25 Mg Tab) 50 mg PO HSZ PRN PRN Reason: Insomnia Stop: 12/12/24 19:09 Hydroxyzine HCl (Hydroxyzine Hcl 25 Mg Tab) 25 mg PO Q4H PRN PRN Reason: Anxiety Stop: 12/12/24 19:09 Lamotrigine (Lamotrigine 25 Mg Tab) 25 mg PO HS HAYES; Protocol Stop: 12/15/24 21:59 Last Admin: 11/15/24 21:32 Dose: 25 mg Magnesium Hydroxide (Magnesium Hydroxide Susp 30 Ml Udc) 30 ml PO DAILY PRN PRN Reason: Constipation Stop: 12/12/24 19:09 Sertraline HCl (Sertraline Hcl 50 Mg Tablet) 150 mg PO DAILY HAYES Stop: 12/15/24 08:59 Last Admin: 11/16/24 08:43 Dose: 150 mg Sodium Chloride (Sodium Chloride 0.65% Na Soln 45 Ml ([place])) 1 - 2 sprays NA PRN PRN PRN Reason: Nasal Dryness/Congestion Stop: 12/12/24 19:09 Mental Health & Subst Abuse Tx Psychiatrist Name of Psychiatrist: Dr. Cheung [facility] Psychiatrist's Date Of Appointment With Psychiatric Provider: 11/22/24 Time of Appointment with Psychiatrist: 10:30 AM Therapist Name of Therapist: Alie Day [facility] Therapist's Date of Therapist Appointment: 11/18/24 Time of Therapist Appointment: 4:00PM Gas Shovel Operator Name of Gas Shovel Operator: [facility] Phone Number for Gas Shovel Operator: [phone] Gas Shovel Operator Release of Information: Obtained, Reviewed and Signed
[2024-11-17] MEDS: SERTRALINE HCL 100 MG TABLET PO SCH (09:05)
--- NOTE | 2024-11-17 10:33 | Discharge Summary ---
Date of Service November 17, 2024 History of Present Illness He presents for psychiatric admission for worsening depression and SI with possible plans of jumping [] in the context of multiple psychosocial stressors including family, financial and work challenges. Starting about two weeks ago he had to start stretching out his sertraline dose due to financial issues limiting his ability to afford the co-pay for a psychiatry appointment to get a prescription refill. He reduced his dose from 150mg daily to 50mg daily over the last two weeks to stretch his prescription until he can afford to be seen by his outpatient provider again. He identifies a lot of OCD symptoms including intrusive violent thoughts about harming himself or others he cares about. He abhijeet by self-reassurance and distraction, though he sometimes struggles to distance himself from these thoughts. 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 He feels overwhelmed, burnt out, and unable to find enjoyment in activities. He endorses depressive sy mptoms including anhedonia, tearfulness, decreased motivation, low appetite (though in part from lack of finances and he thinks due to Vyvanse and has lost weight), sleep has been intermittent and then SI started on . 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 His suicidal thoughts then got to the point of plans including hanging, using a gun, jumping off a building, slitting wrists, overdosing on pills, or throwing himself down stairs. He recognized the intensity of his suicidal thoughts as concerning and therefore sought admission. He identifies these thoughts feel almost like "dissociation and a flashback" due to the intensity of the imagery. He also endorses anxiety with a history of severe panic attacks, including episodes where he believed he was dying from gunshot wounds or heart failure. He is currently prescribed psychiatric medications including sertraline, Vyvanse and guanfacine (helps also with restless legs). Psychiatric ROS notable for history of some episodes of increased energy and no sleep over about 3 days which occurred about a month ago. Reports history of possible psychosis after using cannabis and watching the boolino Show and for about 5 days was convinced he might be in a stimulated reality and sometimes still worries that people might be watching or following him. He identifies that he can get very focused on somatic concerns including fears his pulse may have stopped. No history of eating disorder nor self-harm. Physical Exam Vital Signs (Past 24 Hours) Last Vital Signs Temp 36.6 C 11/17/24 08:00 Pulse 96 H 11/17/24 08:00 Resp 16 11/17/24 08:00 BP 121/74 11/17/24 08:00 Pulse Ox 99 11/17/24 08:00 O2 Del Method Room Air 11/15/24 06:16 Principal Diagnosis Major Depressive Disorder Psychiatric Data See daily stay summary. In short, patient was engaged with the social/therapeutic milieu of the unit, safety was maintained and the patient was cooperative with care. Medication changes included initiation of lamictal 25mg HS for depression augmentation and possible bipolar affective disorder as well as titration of sertraline to 200mg daily for OCD/depression/anxiety and clonidine 0.1mg HS for ADHD and off-label for restless leg syndrome and nightmares and they tolerated this well. A support session was held and safety plan was completed prior to discharge. They participated in safety planning and in discussions about ways to seek support and recognizing warning signs and utilizing coping skills. Reviewed ways to have their safety plan and contacts easily available should thoughts of SI re-emerge in the future. Reviewed importance of seeking emergency care should SI intensify, worsen or should they feel unsafe in the future which they agree to do. On the day of discharge they stated their mood was "happy, excited, optimistic" and remained future-oriented including spending time with his boyfriend and cat, relaxing and engaging in aftercare appointments for psychiatry, [facility] and case management. Day of Discharge Assessment Today the patient voices readiness for discharge. They note improvement in mood and anxiety. They deny thoughts of harm to self or others. Thoughts are organized and they are clinically improved from admission. There is no evidence of psychosis. They improved in the hospital with support and medication adjustments. They agree to take medications as prescribed and keep follow-up appointments. At the time of the discharge they are deemed to be stable and appropriate for outpatient level of care. They are not deemed to be at imminent risk of harm to self or others. They are aware of emergency and crisis services. Knows to call 911 or go to nearest emergency care center if in a crisis which cannot be handled as an outpatient. Suicide risk assessment: Acute risk is low given improvement in mood and denial of SI, lack of access to lethal means, improvement in sleep, hopefulness. Chronic risk is moderate given some non-modifiable risk factors: psychiatric co-morbid diagnoses, prior attempt, emotional reactivity, possible mood disorder, trauma, but also with protective factors including employed, good social support, sense of responsibility to family and social supports, outpatient care in place, positive coping skills, positive problem solving, willingness to engage with treatment and self-observation. Counseled on ways to reduce acute and chronic risk including engaging with outpatient providers, using safety plan if needed, utilizing supports, taking medication, and using coping skills. Modifiable risk factors of SI, OCD, and depression were addressed during hospitalization through development of new coping skills, support meeting, safety planning, and medication adjustments. Discharge physical exam: See admission H&P, MSE per above and day of discharge summary. Overall, I spent a total of 35 minutes on this case including meeting with the patient, reviewing the chart, nursing report, multidisciplinary team meeting, discharge orders, anticipatory planning, safety planning, risk assessment and documentation. Transition of Care Transition Of Care Record: was reviewed with the patient Advance Directives Advance Directives Information Provided: Yes Advance Directives: No Mental Health Advance Directive: No Advance Directives on File: No Living Will: No Advance Directives Reason:: Declines as Mental Health Visit. Suicide Risk Level Suicide Risk Level Comments: Acute risk is low given denial of SI, future-oriented. See further assessment above Risk Factors Assessment Male: Yes : Yes Do You Have Access To A Gun?: No Health Problems: No Mental Health Diagnoses: Yes Substance Use Disorders: No Previous Attempt: Yes Family History of Suicide: No Previous Psychiatric Hospitalization: No Hopelessness: No Protective Factors Assessment Employed: Yes Stable Relationships: Yes Supportive Family: Yes (partner) Good Rapport with Provider: Yes Discharge Data Lab Results 11/12/24 11/12/24 14:22 14:34 WBC 14.69 H RBC 5.45 Hgb 16.0 Hct 46.2 MCV 84.8 MCH 29.4 MCHC 34.6 RDW Std Deviation 36.7 RDW Coeff of Kira 12.2 Plt Count 296 MPV 10.6 Immature Gran % (Auto) 0.3 Neut % (Auto) 85.1 Lymph % (Auto) 8.3 [place] % (Auto) 5.4 Eos % (Auto) 0.5 Baso % (Auto) 0.4 Neut # (Auto) 12.51 H Lymph # (Auto) 1.22 [place] # (Auto) 0.79 H Eos # (Auto) 0.07 Baso # (Auto) 0.06 Immature Gran # (Auto) 0.04 Sodium 140 Potassium 3.7 Chloride 103 Carbon Dioxide 22 Anion Gap 15 H BUN 29 H Creatinine 1.00 Est Cr Clr Drug Dosing 96.7 eGFR 106.45 BUN/Creatinine Ratio 29.0 H Glucose 91 Calcium 10.3 Total Bilirubin 0.7 AST 23 ALT 22 Alkaline Phosphatase 80 Total Protein 8.6 H Albumin 5.7 H Globulin 2.9 Albumin/Globulin Ratio 2.0 TSH 1.950 Urine Color Dark Yellow Urine Appearance Clear Urine pH 5.5 Ur Specific [place] 1.033 H Urine Protein Trace H Urine Glucose (UA) Negative Urine Ketones 2+ H Urine Blood Negative Urine Nitrite Negative Urine Bilirubin Negative Urine Urobilinogen Negative Ur Leukocyte Esterase Negative Urine WBC (Auto) 0-5 Urine RBC (Auto) 0-2 U Hyaline Cast (Auto) 3-5 H U Epithel Cells (Auto) 0-2 Urine Bacteria (Auto) None Seen Urine Mucus Present A Salicylates < 3.0 L Urine Opiates Screen Neg Ur Methadone, Qual Neg Urine Fentanyl Screen Neg Acetaminophen < 3 L Urine Barbiturates Neg Ur Phencyclidine (PCP) Neg U Amphetamin/Meth Scrn Pos H MDMA (Ecstasy) Screen Pos H U Benzodiazepines Scrn Neg Ur Cocaine Metabolite Neg U Marijuana (THC) Screen Pos H Ethyl Alcohol mg/dL < 10.0 SARS-CoV-2, RNA, NAAT NEGATIVE Hospital Course (1) Depression with suicidal ideation: (2) Obsessive compulsive disorder: (3) Generalized anxiety disorder with panic attacks: (4) ADHD (attention deficit hyperactivity disorder), combined type: Plan 11/17/2024: -Feels safe and desires discharge 11/16/2024: -Increase sertraline to 200mg daily 11/15/2024: -Start lamictal 25mg HS 11/14/2024: -Increase sertraline to 150mg daily -Discontinue guanfacine -Start clonidine 0.1mg HS 11/13/2024: The patient was admitted to the [facility] ([facility] inpatient mental health unit) on q15 min checks (behavioral with suicide precautions) for safety. The patient will participate in group, recreational, and milieu therapies and will be offered additional individual and family sessions as clinically appropriate. -increase to sertraline 100mg daily -continue guanfacine 1mg HS -hold Naina since he won't be working and isn't available on hospital formulary -outpatient CM referral, consideration for IOP referral for increased coping skills for emotional regulation/depression/anxiety/OCD -Symptom questionnaires: Y-BOCS, REG, Mood Disorder questionnaire Mental Health & Subst Abuse Tx Psychiatrist Name of Psychiatrist: Dr. Cheung [facility] Psychiatrist's Date Of Appointment With Psychiatric Provider: 11/22/24 Time of Appointment with Psychiatrist: 10:30 AM Psychiatrist Release of Information: Obtained, Reviewed and Signed Therapist Name of Therapist: [facility] Date of Therapist Appointment: 11/18/24 Time of Therapist Appointment: 7:15PM Therapy Appointment Comment: Will resume with [facility] (Alie Day) after [facility] Therapist Release of Information: Obtained, Reviewed and Signed Toby Maker Name of Toby Maker: [facility] Phone Number for Toby Maker: [phone] Toby Maker Release of Information: Obtained, Reviewed and Signed Post Discharge Appointments Primary Care Physician Name Of Family Doctor/PCP: [facility] Ghislaine [facility] Date of Future Appointment with PCP: 01/06/2025 Time of Appointment with PCP: 8:20AM Provider Appointment Comment: [address] They will mail you new patient paperwork Contact Information Discharge Discharge Address: [address] [place] [address] [address] , [place] [address] Discharge Plan Discharge Items Patient Disposition: Home - Self-Care Reason For Visit: UNSPECIFIED DEPRESSIVE D/O Discharge Diagnosis: Major Depressive Disorder Activity: Resume your previous activity Non-emergency contact: Primary Care Provider, Psychiatrist, Therapist and Human Services Supervisor Call non-emergency contact if: you have any medication questions and your symptoms worsen Follow-up/Referrals: PCP,NO [Primary Care Provider] - Diet: Regular Addtl Attending Provider Instructions: Optional mobile apps we discussed: -Suicide safety plan -Virtual Hope Box SPECIAL CARE INSTRUCTIONS: 1. Follow through with your scheduled aftercare appointments. If unable to keep an appointment, please call to reschedule. 2. Take your medication only as prescribed. Medication should not be changed or stopped without the approval of your doctor. In the event of worsening symptoms or concerns about side effects, contact your doctor immediately. 3. Utilize new healthy coping skills, anger management skills, and stress management skills learned during your hospitalization. Journal feelings and process them with a support person. Identify stressors or situations that may result in relapse, deterioration or inappropriate behaviors and develop a plan to deal with those issues. 4. If your coping skills are ineffective and you are in crisis, contact your outpatient providers for direction. If unable to reach your providers, please call the [facility] CRISIS LINE AT , go to the [facility] walk-in center at [address], [place], or go to the closest Emergency Room. 5. Avoid alcohol and un-prescribed drugs. 6. You have been provided with the Mental Health Advance Directives Pamphlet for your review. 7. Your condition is stable for discharge to outpatient level of care, but recovery is an ongoing process. Ifthoughts to harm yourself or others return, follow the safety plan developed during your stay. Planning for a safe return home includes securing weapons. Our treatment team recommends weaponsbe removed from the home until your outpatient provider reassesses your progress. In rare cases where the items themselvescannot be removed, guns and ammunitionshould be secured separatelyand keys stored by a reliable personoutside of the home. If you were admitted on an involuntary commitment, the police or other legal authorities may be involved in this process. AFTERCARE APPOINTMENTS: * Please call your insurance company prior to your scheduled appointment to confirm your aftercare providers are covered. Take your insurance information to your appointments. WHO TO CALL AND WHEN: Medical Emergencies: For questions or emergencies related to your hospital stay, please contact the Inpatient Behavioral Health Unit at [phone]. A speech clinician is on-call 21/04 for the Behavioral Health Unit for emergencies At any time you feel your situation is an emergency, you may also call 911 immediately. [facility] Crisis Hotline: 988 Pending Studies at Discharge: No Stand-Alone Forms: My [facility] Medications and DC Order Prescriptions: New clonidine HCl 0.1 mg Tablet 0.1 mg PO HS 30 Days Qty: 30 0RF sertraline 100 mg Tablet 200 mg PO DAILY 30 Days Qty: 60 0RF lamotrigine [Lamictal] 25 mg Tablet 25 mg PO HS 30 Days Qty: 46 0RF Rx Instructions: Take 1 tab nightly for 14 days then increase to 2 tabs nightly hydroxyzine HCl 25 mg Tablet 25 mg PO DAILY PRN (Reason: anxiety/panic attack) 30 Days Qty: 30 0RF Continued lisdexamfetamine [Vyvanse] 30 mg capsule 30 mg PO DAILY Discontinued sertraline [Zoloft] 100 mg tablet 150 mg PO DAILY Rx Instructions: Has been taking only 50 mg daily to stretch out the prescription. Cannot afford to see his psychiatrist currently. guanfacine 1 mg tablet 1 mg PO HS Discharge Orders: Discharge Order (Routine); Ordered 11/17/24 Ordered By: Gisele Mckeon Admission Data Admit Date/Time: 11/12/24 18:28 Attending Provider: Gisele Mckeon Admit Provider: Gisele Mckeon Primary Care Provider: PCP,NO Other Interventions: Discharge Summary Assessment (RN) Last Done: 11/17/24 08:00 PSY Interdisciplinary Discharge Planning Last Done: 11/17/24 10:07 Coding Level of Care Code 02673 D/C day mgmt > 30 min Diagnoses Depression with suicidal ideation F32.A; R45.851 Obsessive compulsive disorder F42.9 Generalized anxiety disorder with panic attacks F41.1; F41.0 ADHD (attention deficit hyperactivity disorder), combined type F90.2
[2024-11-17 14:17] LABS: Amphetamine Urine, Confirm 14339 ng/mL (<250); MDA negative; MDEA negative; MDMA (Ecstasy) Urine, Confirm negative; Marijuana Quant, GCMS Urine 2402 ng/mL (<5); Methamphetamine, Ur Confirm NEGATIVE ng/mL (<250)
== END 2024-11-17 11:37 | disposition home or self-care (01) | DRG 881 ==
LOC: ED 14:15 → 3S 18:28